=== PATIENT | female | born 1950 | race Caucasian/White ===

== ENCOUNTER → 2016-08-17 | Outpatient (CLI) | payer BC ==
--- NOTE | 2016-08-17 17:33 | REP ---
MR BRAIN WITHOUT AND WITH CONTRAST: HISTORY: Left tinnitus. CONTRAST: ProHance 12 mL. Areas of increased signal intensity on T2 weighted images are present in the periventricular and subcortical white matter. This represents small vessel ischemic disease. There is no intraparenchymal hemorrhage, infarct, mass or midline shift. There is no abnormal enhancement. The ventricular system and cortical sulci are dilated consistent with minimal volume loss. There is no extracerebral collection. There is no cerebellopontine angle mass. The inner ear structures are normal in appearance. The mastoid air cells and visualized sinuses are clear. IMPRESSION: 1. Small vessel ischemic disease. 2. Minimal volume loss. Signed by Sahil Strickland MD 08/18/2016 08:46 A
== END ==
LOC: M RAD 14:57
PROVIDERS: ATTEND Otolaryngology
DX: H93.12 Tinnitus, left ear (principal)

== ENCOUNTER → 2020-10-18 | Outpatient (CLI) | payer BC ==
--- NOTE | 2020-10-18 12:35 | REP ---
INDICATION: PAIN RIGHT SHOULDER. COMPARISON: None. TECHNIQUE: Four views right shoulder. FINDINGS: There is no acute fracture or dislocation. There is mild narrowing of the acromioclavicular joint. No intrinsic osseous pathology. IMPRESSION: Mild degenerative changes acromioclavicular joint. <Electronically signed by Wing Blanco > 10/18/20 [id number]
== END ==
LOC: M SOG 11:19
PROVIDERS: ATTEND Orthopaedic Surgery Sports Medicine
DX: M75.41 Impingement syndrome of right shoulder (principal)

== ENCOUNTER → 2021-12-10 | Outpatient (REF) | payer MEDICARE, BC | LOC: M LAB REF 09:19 | PROVIDERS: ATTEND Surgery | DX: D22.72 Melanocytic nevi of left lower limb, including hip (principal); D48.7 Neoplasm of uncertain behavior of other specified sites ==

== ENCOUNTER 2024-07-26 11:50 | Day surgery (SDC) | payer MEDICARE ==
[~2024-07-26] VITALS: Ht 157.5 cm; Wt 62.1 kg
[~2024-07-26 11:50] MED LIST: ACID1TAB PO; ACYC1TAB PO; AZO1CAP PO; BACTDSTA PO; CALC500C16 PO; CALCCAP4 PO; D3 H2000 PO; ECOT81TA5 PO; LENA15CA PO; LEVA0.6330 NEB; LEVA45AE INH; LEVO75TA4 PO; LIDOCAINE 2% 100MG/5ML SDV (FOR ANES.) As Ordered ONE; MECL-86 PO; METO1TAB7 PO; MULTTAB61 PO; OMEP-173 PO; ONDA-83 PO; POTA-136 PO; RA N1TAB PO; REVL15CA PO; SERT50TA29 PO; TRIA37.577 PO; VELC3.5I SC; [UNRECOGNIZED DRUG - OTHER] SC; [UNRECOGNIZED DRUG - OTHER] SC; propofoL 200 MG/20 ML VIAL As Ordered ONE
[2024-07-26] MEDS ORDERED: fentaNYL 100 MCG/2 ML INJECTION As Ordered ONE (14:14)
[2024-07-26 14:41] VITALS: TEMP 98
[2024-07-26 15:00] VITALS: BP 116/56; O2SAT 97
== END 2024-07-26 15:00 | disposition home or self-care (01) ==
LOC: M OPP 11:50
PROVIDERS: ATTEND Internal Medicine Gastroenterology
DX: Z12.11 Encounter for screening for malignant neoplasm of colon (principal); K64.0 First degree hemorrhoids; K57.30 Diverticulosis of large intestine without perforation or abscess without bleeding; R12 Heartburn; C85.90 Non-Hodgkin lymphoma, unspecified, unspecified site; E03.9 Hypothyroidism, unspecified; R06.2 Wheezing; C90.00 Multiple myeloma not having achieved remission; J44.9 Chronic obstructive pulmonary disease, unspecified; Z91.041 Radiographic dye allergy status; Z88.0 Allergy status to penicillin; Z79.82 Long term (current) use of aspirin; Z79.890 Hormone replacement therapy
CPT/HCPCS: 43239; 88305; G0121; J3010